=== PATIENT | female | born 1970 | race Caucasian/White ===

== ENCOUNTER 2020-12-10 01:48 | Day surgery (SDC) | payer OTHER, SELFPAY ==
[2020-12-01 12:57] VITALS: BMI 33.3
[2020-12-10] MEDS: LACTATED RINGERS 1,000 ML 150 ML IV CONT (09:20)
[2020-12-10 09:23] VITALS: BP 143/94; PULSE 83; RESP 20; TEMP 36.5; O2SAT 100; BMI 33.0
--- NOTE | 2020-12-10 09:44 | P.PNAN_ITS ---
Anes - Initial Pre Proc Eval Procedure: Operation Date: 12/10/20 10:00 Proposed Procedures p Colonoscopy - Migue Gray MD Date/Time: 12/10/20 09:44 Surgeon: Migue Gray MD Pre Op Diagnosis: crohn's disease Patient Data Age: 50 Gender: F Height: 1.52 m Weight: 76.8 kg Last Vital Signs Temp 97.7 F 12/10/20 09:23 Pulse 83 12/10/20 09:23 Resp 20 12/10/20 09:23 BP 143/94 H 12/10/20 09:23 Pulse Ox 100 12/10/20 09:23 Allergies Allergy/AdvReac Type Severity Reaction Status Date / Time No Known Allergies Allergy Unverified 12/01/20 12:56 Home Medications Medication Instructions Recorded Confirmed Type adalimumab 80 mg/0.8 mL See Rx Instructions SUBCUT .COMPLEX 11/11/20 12/01/20 History subcutaneous pen kit cetirizine 10 mg capsule 10 mg PO DAILY 11/11/20 12/01/20 History sertraline 100 mg tablet 100 mg PO DAILY 11/11/20 12/01/20 History Patient hx anesthesia problems: none Family hx anesthesia problems: none Results Review: All pre-operative results and documents have been reviewed as part of the pre-operative evaluation. [facility] Past Medical History Medical History (Updated 11/11/20 @ 15:57 by Migue Gray MD) Anxiety Crohn's disease of ileum Social History Social History (Updated 11/11/20 @ 15:41 by Latanya Vaz CMA) Smoking status: Never smoker Alcohol intake: never Substance use: never Living arrangements: with family Spiritual care concerns: No Anes - Eval Final PreProcedure Day of Procedure 12/10/20 09:44 Patient weight: overweight Heart: regular rate and rhythm Lungs: clear to auscultation Airway: Mallampati scale class II Neurological: alert and oriented Last oral intake: >/= 8 hours ASA classification: II Emergent: no Anesthetic plan: proceed Anesthesia type and monitoring: general GIVS and standard monitoring Results Review: All pre-operative results and documents have been reviewed as part of the pre-operative evaluation. Informed Consent: The patient's anesthetic plan and its attendant risks and benefits were discussed with the patient/family/POA. Questions were solicited and answers provided to the satisfaction of the patient/family/POA.
--- NOTE | 2020-12-10 09:47 | WPDHPUPDATE1 ---
History and Physical Update Update Date/Time: 12/10/20 09:47 History and Physical has been reviewed, including an updated exam of the patient. There are NO changes in the patient's condition. Risks, benefits, and alternatives have been discussed and questions answered. Patient agrees to proceed with procedure.
[2020-12-10 10:03] VITALS: BP 137/93; PULSE 90; RESP 17; O2SAT 100
[2020-12-10 10:13] VITALS: BP 132/87; PULSE 85; RESP 14; O2SAT 100
[2020-12-10 10:23] VITALS: BP 138/85; PULSE 90; RESP 15; O2SAT 100
== END 2020-12-10 10:42 | disposition home or self-care (01) ==
PROVIDERS: PCP Internal Medicine; Visit Provider Internal Medicine Gastroenterology
PROC: 0DJD8ZZ Inspection of Lower Intestinal Tract, Via Natural or Artificial Opening Endoscopic (ICD-10-PCS; CPT 45378; principal; 2020-12-10 10:00)
DX: K50.00 Crohn's disease of small intestine without complications (principal); Z98.0 Intestinal bypass and anastomosis status; K63.3 Ulcer of intestine; K52.9 Noninfective gastroenteritis and colitis, unspecified; K64.8 Other hemorrhoids; K64.4 Residual hemorrhoidal skin tags; Z90.49 Acquired absence of other specified parts of digestive tract; F41.9 Anxiety disorder, unspecified
CPT/HCPCS: 45380; 88305; J2704; J7120

== ENCOUNTER 2022-07-22 09:55 | Outpatient (CLI) | payer OTHER, SELFPAY ==
[2022-07-22 10:49] LABS: Basophils Absolute Auto 0.03 K/mm3 (0.00-0.10); Basophils Percent Auto 0.6 % (0.0-1.0); Eosinophils Absolute Auto 0.17 K/mm3 (0.02-0.50); Eosinophils Percent Auto 3.6 % (1.0-6.0); Hemoglobin 12.5 g/dL (12.0-15.0); Immature Granulocyte Absolute 0.01 K/mm3 (0.00-0.00); Immature Granulocyte Percent A 0.2 % (0.0-0.0); Lymphocytes Absolute Auto 1.85 K/mm3 (1.10-4.50); Lymphocytes Percent Auto 38.9 % (18.0-42.0); Mean Corpuscular HGB Conc 32.9 g/dL (32.0-36.0); Mean Corpuscular Hemoglobin 29.1 pg (27.0-31.0); Mean Corpuscular Volume 88.4 fL (78.0-102.0); Mean Platelet Volume 9.9 fl (9.2-11.8); Monocytes Absolute Auto 0.45 K/mm3 (0.10-0.90); Monocytes Percent Auto 9.5 % (2.0-11.0); Neutrophils Absolute Auto 2.2 K/mm3 (1.7-7.2); Neutrophils Percent Auto 47.2 % (50.0-70.0); Platelet Count Result 242 K/mm3 (150-420); Red Cell Distribution Width 13.2 % (11.6-14.4); White Blood Count 4.8 K/mm3 (4.8-10.8)
[2022-07-22 11:41] LABS: Alanine Aminotransferase 81 U/L (14-59); Albumin Level 3.9 g/dL (3.4-5.0); Alkaline Phosphatase 64 U/L (46-116); Anion Gap 13 mmol/L (8-16); Aspartate Amino Transferase 64 U/L (15-37); Bilirubin,Total 0.3 mg/dL (0.00-1.00); Blood Urea Nitrogen 11 mg/dL (7-18); Calcium 8.9 mg/dL (8.5-10.1); Carbon Dioxide 22 mmol/L (21-32); Chloride 104 mmol/L (98-108); Cholesterol 151 mg/dL (0-200); Estimated Glomerular Filt Rate > 60; Free T4 Free Thyroxine 0.95 ng/dL (0.76-1.46); Glucose 97 mg/dL (70-99); HDL Direct 47 mg/dL (40-60); LDL Cholesterol Calculated 76 mg/dL (<130); Osmolality Calculated 287 mOsm/kg (285-295); Potassium 4.3 mmol/L (3.5-5.1); Sodium 139 mmol/L (136-145); Thyroid Stimulating Hormone 1.21 uIU/mL (0.36-3.74); Total Protein 7.4 g/dL (6.4-8.2); Triglycerides 140 mg/dL (0-150); Vitamin B12 454 pg/mL (193-986)
[2022-07-22 11:51] LABS: CRP < 0.5 mg/dL (0.0-0.9)
[2022-07-22 11:53] LABS: Erythrocyte Sedimentation Rate 12 mm/hr (0-15)
[2022-07-27 17:31] LABS: Vitamin D 25 Hydroxy 34 ng/mL (30-100)
== END 2022-07-22 09:56 | disposition home or self-care (01) ==
PROVIDERS: Internal Medicine Gastroenterology; PCP Nurse Practitioner Family; Visit Provider Nurse Practitioner Family
DX: Z00.00 Encounter for general adult medical examination without abnormal findings (principal); K50.00 Crohn's disease of small intestine without complications
CPT/HCPCS: 36415; 80053; 80061; 82306; 82607; 84439; 84443; 85025; 85652; 86140

== ENCOUNTER 2023-02-14 11:32 | Outpatient (CLI) | payer OTHER, SELFPAY ==
[2023-02-14 12:18] LABS: Influenza A QL RT-PCR Negative (Negative); Influenza B QL RT-PCR Negative (Negative); SARS-CoV-2 RNA PCR Positive (Negative)
[2023-02-14 12:19] LABS: RSV RNA, RT-PCR Negative (Negative)
== END 2023-02-14 11:33 | disposition home or self-care (01) ==
LOC: CHSLAB 11:34
PROVIDERS: PCP Nurse Practitioner Family; Visit Provider Nurse Practitioner Family
DX: U07.1 COVID-19 (principal); R05.9 Cough, unspecified
CPT/HCPCS: 87637